=== PATIENT | female | born 1980 | race Caucasian/White ===

== ENCOUNTER 2020-12-26 17:48 | Emergency (ER) | payer OTHER, SELFPAY ==
[2020-12-26 17:58] VITALS: BP 113/74; PULSE 78; RESP 20; TEMP 37.2; O2SAT 99
--- NOTE | 2020-12-26 18:50 | ED.SKABFB ---
HPI - Skin/Abscess/Foreign Bdy General Chief complaint: Skin/Abscess/Foreign Body Stated complaint: Spider bites Time Seen by Provider: 12/26/20 18:43 Source: patient and RN notes reviewed Mode of arrival: ambulatory Limitations: no limitations History of Present Illness HPI narrative: Patient presents today complaining of insect bites to her right wrist and left ankle that were sustained yesterday. She believes they may be spider bites. The itch profusely but she complains of only scant pain. She rubbed with rubbing alcohol and take Zyrtec daily, but has tried no other [id number] interventions prior to arrival. MD complaint: insect bite/sting Related Data Home Medications Medication Instructions Recorded Confirmed bupropion HCl 150 mg PO QAM 12/26/20 12/26/20 buspirone 5 mg PO BID 12/26/20 12/26/20 Allergies Allergy/AdvReac Type Severity Reaction Status Date / Time aspirin Allergy Unknown Unknown Verified 12/26/20 18:21 Review of Systems Review of Systems: CONSTITUTIONAL: Denies body aches, fever, chills, or sweats. EYES: Denies visual changes, redness, or discharge. ENT: Denies rhinorrhea, congestion, sore throat, or otalgia. CARDIOVASCULAR: Denies chest pain, palpitations, or edema. RESPIRATORY: Denies cough or dyspnea. GASTROINTESTINAL: Denies abdominal pain, nausea, vomiting, or diarrhea. GENITOURINARY: Denies dysuria or hematuria. SKIN: Denies rash, itching, or wounds.+ Insect stings MUSCULOSKELETAL: Denies back pain, joint pain, or myalgia. NEUROLOGIC: Denies headache, numbness, tingling, or weakness. PSYCH: Denies depression or anxiety. PMFSH Comments At time of signature, I have reviewed and agree with nursing past medical, surgical, social and family history unless otherwise noted. Please see nursing chart for further information. There is no relevant family history pertinent to the presenting complaint Exam Narrative: GENERAL: Well-appearing, well-nourished, and in no acute distress. HEAD: Normocephalic, atraumatic. EYES: EOMI. No redness or drainage. Conjunctivae normal. ENT: Mucous membranes pink and moist. NECK: Normal AROM. CHEST: No respiratory distress. EXTREMITIES: Normal range of motion. No edema. SKIN: Warm, dry, no rash. Capillary refill normal. Normal skin turgor. 2 less than 0.5 cm round erythematous nodules to the right wrist dorsum, consistent with insect bite. No warmth, fluctuance, induration, or any other signs of bacterial infection. Nontender to palpation. A 2 cm area of ecchymosis to the inner left ankle with a small nodule in the center, consistent with insect bite. No signs of bacterial infection. Nontender to palpation. NEURO: No focal deficits. Alert and oriented x3. Gait steady. PSYCH: Normal affect. No signs of depression or anxiety. Course Vital Signs Vital signs: Vital Signs Temperature 99.0 F 12/26/20 17:58 Pulse Rate 78 12/26/20 17:58 Respiratory Rate 20 12/26/20 17:58 Blood Pressure 113/74 12/26/20 17:58 Pulse Oximetry 99 12/26/20 17:58 Temperature 99.0 F 12/26/20 17:58 Pulse Rate 78 12/26/20 17:58 Respiratory Rate 20 12/26/20 17:58 Blood Pressure 113/74 12/26/20 17:58 Pulse Oximetry 99 12/26/20 17:58 Reviewed. Pt has been instructed to follow up with his PCP regarding his elevated blood pressure today. MDM - Skin/Abscess/Foreign Bdy Differential Diagnosis Differential diagnosis: Likely abscess of skin or subcutaneous tissue, urticaria, cellulitis, insect bites and contact dermatitis Critical Care Time Critical Care Time Critical Care Time: No Discharge Plan Discharge Clinical Impression: Allergic reaction to insect bite Patient Disposition: Home, Self-Care Condition: Stable Instructions: Insect Bite or Sting (ED) Additional Instructions: Your lesions are likely allergic reactions to the insects that bit you. Apply hydrocortisone cream for itching. Monitor for any signs of infection suc
== END 2020-12-26 18:57 | disposition home or self-care (01) ==
PROVIDERS: Emergency Provider Nurse Practitioner
DX: T63.301A Toxic effect of unspecified spider venom, accidental (unintentional), initial encounter (principal)
CPT/HCPCS: 99211; G0463